=== PATIENT | female | born 1950 | race Caucasian/White ===

== ENCOUNTER 2016-03-31 17:05 | Emergency (ER) | payer MEDICARE ==
[2016-03-31] MEDS ORDERED: Diazepam 10 MG/2 ML SYRINGE ONE (17:37)
--- NOTE | 2016-03-31 18:53 | PICIS ---
[facility] EMERGENCY RECORD TRIAGE (SunMar 31, 2016 17:11 SDIS) TRIAGE NOTES: PT REPORTS DIZZINESS X 2 DAYS. PT DENIES CHEST PAIN. PT REPORTS INTERMITTENT SOB. PT REPORTS LOWER BACK PAIN RADIATING TO BILATERAL LEGS. DENIES ASSOCIATED N/V/D. REPORTS H/O RECENT R SIDED CP. (SunMar 31, 2016 17:11 SDIS) PATIENT: NAME: Mey Beavers, AGE: 66, GENDER: female, : e 1950, TIME OF GREET: SunMar 31, 2016 17:05, PREFERRED LANGUAGE: Slovenian, ETHNICITY: Not or , ECODE BILLING MAP: [facility], SSN: [id number], Zip Code: [address], KG WEIGHT: [phone] (est.), PHONE: , , , PERSON ID: [id number], PAYMENT: [facility] Medicare, PCP: DO GAN JOHN SCOTT. (SunMar 31, 2016 17:11 SDIS) COMPLAINT: MULTIPLE COMPLAINTS. (SunMar 31, 2016 17:11 SDIS) ADMISSION: URGENCY: 3 Urgent, ADMISSION SOURCE: Home, TRANSPORT: Walk-in, BED: TRIAGE. (SunMar 31, 2016 17:11 SDIS) SIRS SCORING: Heart Rate 55-109 (0), Temp range 96.8-101.1 (0), respiratory rate 12-24 (0), Mental Status altered: no (0). (17:31 SDIS) TRIAGE SCREENING: Patient denies suicidal ideation, Patient denies presence of domestic violence. (17:31 SDIS) LMP: LMP: Menopause. (17:31 SDIS) PROVIDERS: TRIAGE NURSE: Verna Landeros RN. (SunMar 31, 2016 17:11 SDIS) VITAL SIGNS: Resp 22, Pain 0, Time 03/31/2016 17:10. (17:10 SDIS) PREVIOUS VISIT ALLERGIES: No Known Drug Allergies. (SunMar 31, 2016 17:11 SDIS) No Known Drug Allergies. (17:31 SDIS) KNOWN ALLERGIES No Known Drug Allergies CURRENT MEDICATIONS omeprazole: CAPSULE,DELAYED RELEASE (ENTERIC COATED) : Strength - 40 mg : ORAL Patient Dose: 40 mg Oral once a day. (17:16 SDIS) meTOPROLOL succinate: TABLET, EXTENDED RELEASE 24 HR : Strength - 50 mg : ORAL Patient Dose: 50 mg Oral 2 times a day. (17:16 SDIS) metFORMIN: TABLET : Strength - 500 mg : ORAL Patient Dose: 500 mg Oral 2 times a day. (17:17 SDIS) FLUoxetine: CAPSULE : Strength - 20 mg : ORAL Patient Dose: 20 mg Oral 2 times a day. (17:17 SDIS) losartan: TABLET : Strength - 100 mg : ORAL Patient Dose: 100 mg Oral once a day. (17:18 SDIS) amLODIPine: TABLET : Strength - 10 mg : ORAL &a-1R&a+25V*p+0X*m8005R*c202B*c15G*c2P*p-0X&a-25V&a+1R Name: Mey Beavers : 1950 F66 MedRec: [id number] AcctNum: [id number] Prepared: SunApr 03, 2016 09:35 by Interface Page 1 of 8 pMD [facility] EMERGENCY RECORD Patient Dose: 10 mg Oral once a day. (17:18 SDIS) meloxicam: TABLET : Strength - 15 mg : ORAL Patient Dose: 15 mg Oral once a day. (17:18 SDIS) Advair Diskus: BLISTER, WITH INHALATION DEVICE : Strength - 250 mcg-50 mcg/Dose : INHALATION Patient Dose: 2 puff(s) Inhaler once a day. (17:19 SDIS) rOPINIRole: TABLET : Strength - 2 mg : ORAL Patient Dose: 2 mg Oral As Needed. (17:19 SDIS) ProAir HFA: HFA AEROSOL WITH ADAPTER (GRAM) : Strength - 90 mcg : INHALATION Patient Dose: 2 puff(s) Inhaler As Needed. (17:20 SDIS) furosemide: TABLET : Strength - 40 mg : ORAL Patient Dose: 40 mg Oral As Needed. (17:20 SDIS) LORazepam: TABLET : Strength - 0.5 mg : ORAL Patient Dose: 0.5 mg Oral As Needed. (17:20 SDIS) tiZANidine: CAPSULE : Strength - 4 mg : ORAL Patient Dose: 4 mg Oral every 8 hours PRN. (17:21 SDIS) benzonatate: CAPSULE : Strength - 100 mg : ORAL Patient Dose: 100 mg Oral every 8 hours PRN. (17:21 SDIS) VITAL SIGNS VITAL SIGNS: Resp: 22, Pain: 0, Time: 03/31/2016 17:10. (17:10 SDIS) BP: 142/62, Pulse: 59, Temp: 98.7 (Oral), O2 sat: 96 on Room Air, Time: 03/31/2016 17:16. (17:16 SDIS) BP: 160/52, Pulse: 64, Resp: 22, Temp: 97.9 (Oral), Pain: 0, O2 sat: 94 on Room Air, Time: 03/31/2016 18:38. (18:38 SDIS) NURSING ASSESSMENT: CVA ASSESSMENT TOOL (17:34 SDIS) NIHSS: CVA assessment findings: Level of consciousness: alert, keenly responsive (0), Questions: answers both questions correctly (0), Commands: performs both tasks correctly (0), Best gaze: normal (0), Visual: no visual loss (0), Facial palsy: normal symmetrical movement (0), Motor Left Arm: no drift, arm stays 90/45 degrees for full 10 seconds (0), Motor Right Arm: no drift, arm stays 90/45 degrees for full 10 seconds (0), Motor left leg: no drift, leg stays at 30 degrees for full five seconds (0), Motor right leg: no drift, leg stays at 30 degrees for full five seconds (0), Limb ataxia absent (0), Sensory: normal, no sensory loss (0), Best language: no aphasia; normal (0), Dysarthria: normal (0), Extinction and Inattention: normal (0), Total score 0. NOTES: Notes: NIH DONE BY DR. VAUGHN. &a-1R&a+25V*p+0X*[id number]*c202B*c15G*c2P*p-0X&a-25V&a+1R Name: Mey Beavers : 1950 F66 MedRec: [id number] AcctNum: [id number] Prepared: SunApr 03, 2016 09:35 by Interface Page 2 of 8 pMD [facility] EMERGENCY RECORD NURSING ASSESSMENT: NEURO (17:32 SDIS) GCS: (6) Obeying command:, (5) Orientated:, (4) Spontaneous eye opening. CONSTITUTIONAL: Patient arrives, via hospital wheelchair, Gait steady, History obtained from patient, Patient appears comfortable, Patient cooperative, Patient alert, Oriented to person, place and time, Skin warm, Skin dry, Skin normal in color, Mucous membranes pink, Mucous membranes moist, Patient complains of dizziness, SEE TRIAGE NOTE BY THIS RN. PT REPORTS ONSET 2-3 DAYS AGO. DENIES ASSOCIATED N/V. FEELS DIZZIER WITH POSITION CHANGE. DENIES SOB, DENIES PAIN. PAIN: Patient rates pain as 0 out of 10. NEURO: Pupils equally round and reactive to light, Able to close eyes, Face asymmetrical, Associated with dizziness described as, no associated nausea, no associated syncopal episode, no associated vomiting. NURSING ASSESSMENT: SKIN (17:28 SDIS) SKIN: Skin assessment findings include skin warm, Skin dry, Skin normal in color, Notes: BLANCHEABLE REDNESS TO BILATERAL BUTTOCKS. NURSING PROCEDURE: DISCHARGE NOTE (18:39 SDIS) DISCHARGE: Patient discharged to home, ambulating without assistance, family driving, accompanied by other family member, Summary of Care printed/ provided, Transition record given to patient, Discharge instructions given to patient, Simple or moderate discharge teaching performed, Prescriptions given and instructions on side effects given, Above person(s) verbalized understanding of discharge instructions and follow-up care, Patient instructed not to drive home, Patient treated and evaluated by physician, Notes: PT INSTRUCTED NOT TO DRIVE ON PAIN MEDICATIONS. PT VERBALIZES UNDERSTANDING. BELONGINGS: Belongings and valuables with patient at time of discharge include:, Belongings remain with patient, Valuables remain with patient. NURSING PROCEDURE: EKG CHART (17:11 SDIS) PATIENT IDENTIFIER: Patient actively involved in identification process, Patient's identity verified by patient stating name, Patient's identity verified by patient stating date, Patient's identity verified by hospital ID bracelet. EKG: EKG indicated for DIZZINESS, 12 lead EKG performed on the left chest, done by ANNIE CHAIREZ, first EKG. FOLLOW-UP: After procedure, EKG for interpretation given to Dr. VAUGHN. NURSING PROCEDURE: IV IV SITE 1: IV established, to the left antecubital, using a 20 gauge catheter, in one attempt, IV site prepped with CHLOROPREP, &a-1R&a+25V*p+0X*k6319B*c202B*c15G*c2P*p-0X&a-25V&a+1R Name: Mey Beavers : 1950 F66 MedRec: [id number] AcctNum: [id number] Prepared: SunApr 03, 2016 09:35 by Interface Page 3 of 8 pMD [facility] EMERGENCY RECORD Saline lock established, Labs drawn at time of placement, labeled in the presence of the patient and sent to lab, Notes: BY ANNIE NUNEZ. (17:24 SDIS) FOLLOW-UP SITE 1: After procedure, no drainage at IV site, After procedure, no swelling at IV site, After procedure, no redness at IV site, IV discontinued, due to patient being discharged, catheter intact, Notes: gauze and coban applied to hold pressure. (18:38 SDIS) SAFETY: Side rails up, Cart/Stretcher in lowest position, Call light within reach, Hospital ID band on. (17:24 SDIS) NURSING PROCEDURE: URINE COLLECTION (17:25 SDIS) URINE COLLECTION FEMALE: Urine collected by mid-stream clean catch, urine yellow in color, and clear, Notes: URINE KIT USED. MEDICATION ADMINISTRATION SUMMARY Drug Name: Valium injection, Dose Ordered: 5 mg, Route: IV Push, Status: Given, Time: 17:40 03/31/2016, Detailed record available in Medication Service section. MEDICATION SERVICE (17:40 MBRI) Valium injection: Order: Valium injection (diazepam) - Dose: 5 mg : IV Push POTENTIAL SEVERE INTERACTION: FLUoxetine - Benefits outweigh risks Schedule: Now Ordered by: Ancelmo Vaughn DO Entered by: Ancelmo Vaughn DO SunMar 31, 2016 17:38 Documented as given by: Verna Landeros RN SunMar 31, 2016 17:40 Patient, Medication, Dose, Route and Time verified prior to administration. IV SITE #1 IVP, initial medication, Slowly, Awake and alert- acceptable, Catheter placement confirmed via flush prior to administration, IV site without signs or symptoms of infiltration during medication administration, No swelling during administration, No drainage during administration, IV flushed after administration, Correct patient, time, route, dose and medication confirmed prior to administration, Patient advised of actions and side-effects prior to administration, Allergies confirmed and medications reviewed prior to administration. HPI WEAK-DIZZY (17:38 MBRI) CHIEF COMPLAINT: Patient presents for evaluation of dizziness. HISTORIAN: History provided by patient. LOCATION: Unable to localize symptoms. QUALITY: Symptoms described as, feeling unsteady, feelings of movement, patient spinning, while standing up, while lying down, while ambulating, Patient is alert and oriented &a-1R&a+25V*p+0X*p1558B*c202B*c15G*c2P*p-0X&a-25V&a+1R Name: Mey Beavers : 1950 F66 MedRec: [id number] AcctNum: [id number] Prepared: SunApr 03, 2016 09:35 by Interface Page 4 of 8 pMD [facility] EMERGENCY RECORD to person, place and time, Joon coma score is 15. SEVERITY: Maximum severity of symptoms moderate, Currently symptoms are moderate. TIME COURSE: Gradual onset of symptoms, There has been no change in the patient's symptoms over time, are intermittent. ASSOCIATED WITH: No associated ataxia, No associated chest pain, No associated chills, No associated ear pain, No associated fever, No associated gait disturbance, No associated headache, No associated nausea, No associated palpitations, No associated vomiting, No associated visual changes, Associated with upper respiratory infection. EXACERBATED BY: Patient's condition exacerbated by position, Patient's condition exacerbated by movement. RELIEVED BY: Patient's condition relieved by nothing because patient has not tried anything for relief. ROS (17:38 MBRI) CONSTITUTIONAL: Negative constitutional review of systems, Historian denies chills, denies fever. EYES: Historian denies eye pain, denies eye redness, denies eye discharge, reports nystagmus, denies photophobia, denies vision changes. Patient wears glasses. ENT: Historian denies rhinorrhea, denies sore throat. CARDIOVASCULAR: Historian denies chest pain, denies dyspnea on exertion. RESPIRATORY: Historian denies cough, denies shortness of breath. GI: Negative gastrointestinal review of systems, Historian denies abdominal pain, denies diarrhea, denies nausea, denies vomiting. GENITOURINARY FEMALE: Historian denies dysuria, denies frequency, denies hematuria. MUSCULOSKELETAL: Historian denies injury, Denies any musculoskeletal pain. SKIN: Negative skin review of systems, Historian denies skin changes. NEUROLOGIC: Historian denies dizziness, denies dysphasia, denies focal weakness, denies headache, denies mental status changes, denies paresthesias, denies sensory changes, denies speech changes, reports vertigo, denies focal weakness, Historian denies sensory changes. PAST MEDICAL HISTORY (17:31 SDIS) MEDICAL HISTORY: Notes: BACK PAIN, Past medical history includes history of diabetes, Past medical history includes gastrointestinal disease, gastroesophageal reflux disease, Past medical history includes history of hyperlipidemia, high cholesterol, Past medical history includes history of hypertension. COPD. FEMALE SURGICAL HISTORY: Surgical history of section, Notes: X2, Surgical history of orthopedic surgery, BILATERAL KNEES. HERNIA REPAIR. PSYCHIATRIC HISTORY: Psychiatric history includes, &a-1R&a+25V*p+0X*t6843J*c202B*c15G*c2P*p-0X&a-25V&a+1R Name: Mey Beavers : 1950 F66 MedRec: [id number] AcctNum: [id number] Prepared: SunApr 03, 2016 09:35 by Interface Page 5 of 8 pMD [facility] EMERGENCY RECORD anxiety. SOCIAL HISTORY: Patient denies alcohol use, Patient denies drug use, Patient currently uses tobacco, smokes cigarettes, daily, Patient smokes 1 pack per day. PHYSICAL EXAM (17:38 MBRI) CONSTITUTIONAL: Vital Signs Reviewed, Nursing notes reviewed. HEAD: Head exam included findings of head atraumatic, normocephalic. EYES: Eye exam included findings of eyelids normal to inspection, Pupils equally round and reactive to light, Extraocular muscles intact. ENT: Ear exam normal, external ear normal, tympanic membranes normal, Pharynx exam normal. NECK: Neck exam normal, no cervical adenopathy, no tenderness. RESPIRATORY CHEST: Respiratory exam included findings of no respiratory distress, Breath sounds clear, No wheezing, No rales, No rhonchi. CARDIOVASCULAR: Cardiovascular exam included findings of heart rate regular rate and rhythm, Heart sounds normal, Carotids normal. ABDOMEN FEMALE: Abdominal exam included findings of abdomen nontender, Bowel sounds normal, no peritoneal signs, no rigidity, no guarding, no rebound. BACK: Back exam included findings of normal inspection, no tenderness. UPPER EXTREMITY: Upper extremity exam included findings of inspection normal, Radial pulse normal, no cyanosis, no clubbing, no edema. LOWER EXTREMITY: Lower extremity exam included findings of inspection normal, femoral pulses normal, no cyanosis, no clubbing, no edema, no tenderness noted. NEURO: Neuro exam findings include patient oriented to person, place and time, Speech normal, Gait normal, Cranial nerves intact, Deep tendon reflexes normal, no focal motor deficits, no focal sensory deficits, no cerebellar deficits, no nystagmus, no clonus, NIHSS 0 and normal HINTS exam at this time. She does have a positive Hallpike eval with induction of symptoms, nystagmus horizontally, and fatiguability of symptoms c/w BPV. SKIN: Skin exam included findings of skin warm, dry, and normal in color. EVENTS TRANSFER: Triage to Emergency Triage. (SunMar 31, 2016 17:11 SDIS) Emergency Triage to Emergency Room -02. (17:16 SDIS) Removed from Emergency Emergency Room -02. (18:42 SDIS) EKG INTERPRETATION (17:18 MBRI) 12 LEAD EKG INTERPRETATION: 12 lead EKG interpreted by Emergency Department Physician at time of study, 12 lead EKG shows, &a-1R&a+25V*p+0X*k2442Y*c202B*c15G*c2P*p-0X&a-25V&a+1R Name: Mey Beavers : 1950 F66 MedRec: [id number] AcctNum: [id number] Prepared: SunApr 03, 2016 09:35 by Interface Page 6 of 8 pMD [facility] EMERGENCY RECORD sinus bradycardia, Rate (beats per minute): 57, with no ectopics, Conduction normal, ST segments normal, T waves normal, [place] normal, Other findings include:, age undetermined inf infarct. O2SAT INTERPRETATION (17:18 MBRI) O2SAT: Oxygen saturation interpretation: Normal. DOCTOR NOTES (18:27 MBRI) TEXT: Patient has been thoroughly evaluated. The patients symptoms are not consistent with CVA, new-onset TIA, or SAH at this time. Patient has a stable neurological exam and no present findings to suggest central cause of the symptoms. I will discharge home with follow-up and I have rec that she get back with her ENT phys for further care. Explanation and discussion of findings and plan for follow-up have been discussed with the patient and family and questions answered. The patient was instructed to return to the ED if a change in status occurs prior to PCP follow-up. PROBLEM LIST No recorded problems DIAGNOSIS (18:28 MBRI) FINAL: PRIMARY: BENIGN PAROXYSMAL VERTIGO BILATERAL, ADDITIONAL: Sciatica - Left. DISPOSITION PATIENT: Disposition Type: Discharge, Disposition: *Discharge Home, Condition: Improved. (18:28 MBRI) Patient left the department. (18:42 SDIS) INSTRUCTION (18:29 MBRI) DISCHARGE: BENIGN POSITIONAL VERTIGO, BACK PAIN W/ SCIATICA. FOLLOWUP: DO MALIK, DOUG SAINI, [facility], [address] [place] [address], , Follow up with Primary Care Physician in 7 days. SPECIAL: Please return for any further issues or concerns, we would be happy to see you. We hope you feel better soon. Follow-up with your PCP Tylenol or Advil for Pain. PRESCRIPTION Flexeril: TABLET : 10 mg : ORAL : Quantity: 1 Unit: tab(s) Route: ORAL Schedule: every 8 hours PRN Dispense: 30 May substitute. Refills: No Refills . (18:28 MBRI) NOTES: No refills. (18:28 MBRI) meclizine oral: CAPSULE : 25 mg : ORAL : Quantity: 1 Unit: tab(s) Route: ORAL Schedule: every 6 hours PRN Dispense: 20 Unit: tab(s) &a-1R&a+25V*p+0X*y7669H*c202B*c15G*c2P*p-0X&a-25V&a+1R Name: Mey Beavers : 1950 F66 MedRec: [id number] AcctNum: [id number] Prepared: SunApr 03, 2016 09:35 by Interface Page 7 of 8 pMD [facility] EMERGENCY RECORD May substitute. Refills: No Refills . (18:29 MBRI) NOTES: No refills. (18:29 MBRI) Valium oral: TABLET : 5 mg : ORAL : Quantity: 1 Unit: tab(s) Route: ORAL Schedule: every 8 hours PRN Dispense: 10 Unit: tab(s) May substitute. Refills: No Refills POTENTIAL SEVERE INTERACTION: FLUoxetine Override Rationale: Benefits outweigh risks. (18:29 MBRI) NOTES: ^s=No refills No refills. (18:29 MBRI) IMAGING *DISCHARGE INSTRUCTIONS RECEIPT: Image captured from scanner. (18:40 SDIS) *SUPPLY CHARGE SHEET: Image captured from scanner. (18:40 SDIS) *EKG: Image captured from scanner. (18:41 SDIS) ADMIN (SunApr 03, 2016 09:25 MBRI) DIGITAL SIGNATURE: DO Vaughn Matthew. Hubbard: MBRI=DO Vaughn Matthew SDIS=ANNIE Landeros, Verna &a-1R&a+25V*p+0X*t6434Q*c202B*c15G*c2P*p-0X&a-25V&a+1R Name: Mey Beavers : 1950 F66 MedRec: [id number] AcctNum: [id number] Prepared: SunApr 03, 2016 09:35 by Interface Page 8 of 8 pMD MTDD
== END 2016-03-31 18:39 | disposition home or self-care (01) ==
LOC: BURERS 17:05
DX: H81.13 Benign paroxysmal vertigo, bilateral (principal); M54.32 Sciatica, left side; E11.9 Type 2 diabetes mellitus without complications; K21.9 Gastro-esophageal reflux disease without esophagitis; E78.5 Hyperlipidemia, unspecified; I10 Essential (primary) hypertension; J44.9 Chronic obstructive pulmonary disease, unspecified; F41.9 Anxiety disorder, unspecified; F17.210 Nicotine dependence, cigarettes, uncomplicated; Z79.899 Other long term (current) drug therapy
CPT/HCPCS: 96374; J3360

== ENCOUNTER 2016-05-09 09:48 | Outpatient (CLI) | payer MEDICARE ==
--- NOTE | 2016-05-09 22:09 | RAD ---
CHEST TWO VIEWS 05/09/16 Comparison is made with the 12/09/15 study. The heart is borderline in size but unchanged. There is no vascular congestion or edema. No lobar in filtrate or effusion was seen. On the lateral view, there was a small amount of streaking posteriorl y behind the heart. I cannot absolutely exclude a minimal infiltrate, probably in the right lower lo be. The lungs are otherwise clear. The trachea is midline. IMPRESSION: 1. Borderline heart size, stable. 2. Retrocardiac streaking that raises the question of a minimal infiltrate in the right base. Code T POS: HOME
== END 2016-05-09 09:49 | disposition home or self-care (01) ==
LOC: BURRAD 09:48
PROVIDERS: ATTEND Physician Assistant
DX: J45.909 Unspecified asthma, uncomplicated (principal)
CPT/HCPCS: 71020

== ENCOUNTER 2016-05-24 09:52 | Outpatient (CLI) | payer MEDICARE ==
[2016-05-24 10:45] LABS: #Eosinphils 0.1 thou/uL (0.0-0.7); #Lymphocytes 1.8 thou/uL (1.20-3.40); #Monocytes 0.9 thou/uL (0.11-0.59); #Neutrophils 6.8 thou/uL (1.40-6.50); %Basophils 0.5 % (0.0-1.0); %Eosinophils 1.2 % (0.0-10.0); %Monocytes 9.1 % (0.0-10.0); Hematocrit 45.3 % (36.0-47.0); Mean Platelet Volume 6.8 fL (7.4-10.4); Red Blood Cell (RBC) Count 4.97 mill/uL (4.20-5.40); White Blood Cell (WBC) Count 9.6 thou/uL (4.8-10.8)
[2016-05-24 10:53] LABS: ALT (SGPT) 23 U/L (0-55); AST (SGOT) 20 U/L (5-34); Alkaline Phosphatase 62 U/L (40-150); Anion Gap 15 mmol/L (10-20); BUN (Urea Nitrogen) 14 mg/dL (9.8-20.1); Bilirubin, Total 0.6 mg/dL (0.2-1.2); Calc. Creatinine Clearance 0 mL/min (70-130); Calcium 9.4 mg/dL (7.8-10.44); Carbon Dioxide 26 mmol/L (23-31); Chloride 103 mmol/L (98-107); Estimated GFR-MDRD 68; Globulin 3.3 g/dL (2.4-3.5); LDL Cholesterol, Calculated 115 mg/dL; Protein, Total 7.2 g/dL (5.8-8.1)
[2016-05-24 10:55] LABS: Hemoglobin A1c 7.1 % (4.0-6.0)
== END 2016-05-24 09:53 | disposition home or self-care (01) ==
LOC: HPCALD 09:52
PROVIDERS: ATTEND Physician Assistant
DX: E11.9 Type 2 diabetes mellitus without complications (principal); I10 Essential (primary) hypertension
CPT/HCPCS: 36415; 80053; 80061; 83036; 84443; 85025

== ENCOUNTER 2016-05-24 10:07 | Outpatient (CLI) | payer MEDICARE ==
--- NOTE | 2016-05-24 22:39 | RAD ---
CHEST TWO VIEWS 05/24/16 Comparison is made with the 05/09/16 study. The heart is borderline in size but certainly no larger t perez before. There is no congestive change or pleural effusion. A calcified granuloma is seen in the right base. The left hilum is a little prominent but I believe that this is just all pulmonary arter y made a little more prominent by how the patient is being positioned. The trachea is midline. IMPRESSION: No definite acute findings. POS: HOME
== END 2016-05-24 10:08 | disposition home or self-care (01) ==
LOC: BURRAD 10:07
PROVIDERS: ATTEND Physician Assistant
DX: J44.9 Chronic obstructive pulmonary disease, unspecified (principal)
CPT/HCPCS: 36415; 71020; 80053; 80061; 83036; 84443; 85025

== ENCOUNTER 2016-06-01 08:40 | Outpatient (CLI) | payer MEDICARE | END 2016-06-01 08:41 | LOC: HPCALD 08:40 | PROVIDERS: ATTEND Physician Assistant | DX: R94.6 Abnormal results of thyroid function studies (principal) | CPT/HCPCS: 36415; 84443 ==

== ENCOUNTER 2016-08-14 11:19 | Outpatient (CLI) | payer MEDICARE ==
[2016-08-14 14:59] LABS: Anion Gap 19 mmol/L (10-20); BUN (Urea Nitrogen) 11 mg/dL (9.8-20.1); Calc. Creatinine Clearance 0 mL/min (70-130); Calcium 9.5 mg/dL (7.8-10.44); Carbon Dioxide 26 mmol/L (23-31); Chloride 100 mmol/L (98-107); Estimated GFR-MDRD 64; Glucose 103 mg/dL (80-115); Potassium 3.7 mmol/L (3.5-5.1); Sodium 141 mmol/L (136-145)
== END 2016-08-14 11:20 ==
LOC: HPCALD 11:19
PROVIDERS: ATTEND Physician Assistant
DX: E05.90 Thyrotoxicosis, unspecified without thyrotoxic crisis or storm (principal); R60.0 Localized edema
CPT/HCPCS: 36415; 80048; 84443

== ENCOUNTER 2017-04-24 15:01 | Outpatient (CLI) | payer MEDICARE ==
--- NOTE | 2017-04-24 21:16 | RAD ---
CHEST TWO VIEWS 04/24/17 Comparison is made with the 05/24/16 study. There is no significant interval change. The heart is upper normal in size but no different. There is no vascular congestion, edema, or pleural effusion. A calcified granuloma is seen in the right base as before. The mediastinum was unremarkable and the trachea is midline. IMPRESSION: No acute thoracic findings. POS: HOME
== END 2017-04-24 15:02 | disposition home or self-care (01) ==
LOC: BURRAD 15:01
PROVIDERS: ATTEND Physician Assistant
DX: J45.909 Unspecified asthma, uncomplicated (principal)
CPT/HCPCS: 71046

== ENCOUNTER 2017-05-09 17:25 | Emergency (ER) | payer MEDICARE ==
[2017-05-09 18:16] LABS: #Eosinphils 0.2 thou/uL (0.0-0.7); #Lymphocytes 2.7 thou/uL (1.20-3.40); #Monocytes 0.9 thou/uL (0.11-0.59); #Neutrophils 11.1 thou/uL (1.40-6.50); %Basophils 0.3 % (0.0-1.0); %Eosinophils 1.2 % (0.0-10.0); %Lymphocytes 18.2 % (21.0-51.0); %Monocytes 5.8 % (0.0-10.0); %Neutrophils 74.4 % (42.0-75.0); Mean Corpuscular Hemoglobin 32.5 pg (27.0-31.0); Mean Corpuscular Volume 90.3 fl (81.0-99.0); Mean Platelet Volume 8.9 fL (7.4-10.4); Platelet Count 236 thou/uL (130-400); RBC Distribution Width 13.3 % (11.5-14.5); White Blood Cell (WBC) Count 14.9 thou/uL (4.8-10.8)
[2017-05-09 18:33] LABS: Bilirubin Negative (Negative); Blood, Urine Negative (Negative); Clarity Clear (Clear); Glucose, Urine (Dipstick) Negative (Negative); Leukocyte Negative (Negative); Nitrite Negative (Negative); Protein, Urine (Dipstick) Negative (Neg-Trace); Specific Gravity, Urine 1.015 (1.005-1.030); Urobilinogen 0.2 mg/dL (0.2-1.0)
[2017-05-09 18:35] LABS: ALT (SGPT) 20 U/L (8-55); AST (SGOT) 22 U/L (5-34); Albumin 3.7 g/dL (3.4-4.8); Alkaline Phosphatase 48 U/L (40-150); Anion Gap 16 mmol/L (10-20); BUN (Urea Nitrogen) 11 mg/dL (9.8-20.1); Bilirubin, Total 0.4 mg/dL (0.2-1.2); Calc. Creatinine Clearance 0 mL/min (70-130); Calcium 8.7 mg/dL (7.8-10.44); Carbon Dioxide 31 mmol/L (23-31); Chloride 97 mmol/L (98-107); Estimated GFR-MDRD 69; Globulin 3.1 g/dL (2.4-3.5); Glucose 116 mg/dL (80-115); Protein, Total 6.8 g/dL (6.0-8.3); Sodium 141 mmol/L (136-145)
[2017-05-09 18:37] LABS: CKMB 1.3 ng/mL (0-6.6); Potassium 2.6 mmol/L (3.5-5.1); Troponin I 0.014 ng/mL (< 0.028)
[2017-05-09 18:42] LABS: PTT 25.8 SEC (22.9-36.1); Prothrombin Time 13.3 SEC (12.0-14.7)
[2017-05-09] MEDS ORDERED: Potassium Chloride 20 MEQ TAB ONE (18:56)
[2017-05-09] MEDS ORDERED: Potassium Chloride 20 MEQ/100 ML PREMIX BAG ONE (19:16)
== END 2017-05-09 20:06 | disposition short-term general hospital (02) ==
LOC: BURERS 17:25
DX: E87.6 Hypokalemia (principal); E11.9 Type 2 diabetes mellitus without complications; K21.9 Gastro-esophageal reflux disease without esophagitis; E78.5 Hyperlipidemia, unspecified; J44.9 Chronic obstructive pulmonary disease, unspecified; I10 Essential (primary) hypertension; F41.9 Anxiety disorder, unspecified; F17.210 Nicotine dependence, cigarettes, uncomplicated; Z79.899 Other long term (current) drug therapy; Z79.84 Long term (current) use of oral hypoglycemic drugs
CPT/HCPCS: 80053; 81003; 82553; 84443; 84484; 85025; 85610; 85730; 93005; 96365; J3480

== ENCOUNTER 2017-06-27 09:29 | Outpatient (CLI) | payer MEDICARE ==
--- NOTE | 2017-06-28 08:33 | ULT ---
THYROID ULTRASOUND: 06/27/17 Comparison is made with the prior study dated 06/02/16. Right lobe is approximately the same size as before and today was measured at 4.5 x 2.4 x 2.7 cm. Two complex, mostly solid, nodules are seen in this lobe. One is in the superior part of the lobe and me asures 0.8 x 1.1 x 0.8 cm. The other is in the middle third of the lobe and measures 1.8 x 2.4 x 1.2 cm. Allowing for differences in scanning, the overall appearance is approximately the same. The left lobe is a bit larger today when last year's scan. Today it measures 6.3 x 4.0 x 3.0 cm. Ther e are at least two complex mostly cystic masses in the mid to lower portion of this lobe. One measure s about 2.8 x 2.3 x 2.4 cm and the other is 2.9 x 1.9 x 2.6 cm. They are immediately adjacent to each other and is somewhat difficult to separate one from the other. The appearance is similar to before. IMPRESSION: 1. Thyroid enlargement with slight enlargement of the left lobe since last year. 2. Bilateral complex nodules, mostly solid in the right lobe and somewhat more cystic in the lef t lobe. While comparison is difficult to be precise, they roughly appear similar to the prior scan. POS: HOME
== END 2017-06-27 09:30 | disposition home or self-care (01) ==
LOC: BURULT 09:29
PROVIDERS: ATTEND Specialist
DX: E04.2 Nontoxic multinodular goiter (principal); E04.9 Nontoxic goiter, unspecified
CPT/HCPCS: 76536

== ENCOUNTER 2017-10-25 10:31 | Outpatient (CLI) | payer MEDICARE ==
--- NOTE | 2017-10-25 19:30 | RAD ---
PELVIS ONE VIEW: 10/25/17 The bony pelvis appears intact. No fracture or area of bony destruction was seen. The hip joints are symmetrical. The SI joints were unremarkable. IMPRESSION: No acute finding. POS: HOME
--- NOTE | 2017-10-25 19:34 | RAD ---
LUMBAR SPINE THREE VIEWS: 10/25/17 There is slight disc space narrowing at L2-L3 with anterior osteophytes here. There is minimal alvin listhesis of L4 on L5 that appears to be due to very prominent facet arthritis at this level. Small o steophytes are seen elsewhere. No fractures were evident. There is some calcification of the abdomina l aorta. IMPRESSION: 1. Moderately severe degenerative changes, particularly in the facet joints at L4-L5. 2. Mild disc space narrowing at L2-L3. POS: HOME
== END 2017-10-25 10:32 | disposition home or self-care (01) ==
LOC: BURRAD 10:31
PROVIDERS: ATTEND Family Medicine
DX: M51.16 Intervertebral disc disorders with radiculopathy, lumbar region (principal); M47.896 Other spondylosis, lumbar region
CPT/HCPCS: 72100; 72170

== ENCOUNTER 2018-03-21 07:10 | Emergency (ER) | payer MEDICARE ==
[2018-03-21] MEDS ORDERED: Morphine 4 MG/ML VIAL ONE ×2 (07:40→08:46)
[2018-03-21 07:58] LABS: #Basophils 0.1 thou/uL (0.0-0.2); #Eosinphils 0.2 thou/uL (0.0-0.7); #Lymphocytes 2.1 thou/uL (1.20-3.40); #Monocytes 0.8 thou/uL (0.11-0.59); #Neutrophils 7.6 thou/uL (1.40-6.50); %Basophils 0.8 % (0.0-1.0); %Eosinophils 1.9 % (0.0-10.0); %Lymphocytes 19.4 % (21.0-51.0); %Monocytes 7.1 % (0.0-10.0); %Neutrophils 70.8 % (42.0-75.0); Hemoglobin 13.2 g/dL (12.0-16.0); Mean Corpuscular HGB CONC 33.5 g/dL (32.0-36.0); Mean Corpuscular Volume 89.4 fL (78.0-98.0); Mean Platelet Volume 7.2 fL (7.4-10.4); Platelet Count 253 thou/uL (130-400); RBC Distribution Width 13.2 % (11.5-14.5); Red Blood Cell (RBC) Count 4.39 mill/uL (4.20-5.40); White Blood Cell (WBC) Count 10.7 thou/uL (4.8-10.8)
[2018-03-21 08:07] LABS: Bilirubin Small (Negative); Clarity Slightly Cloudy (Clear); Glucose, Urine (Dipstick) Negative (Negative); Leukocyte Negative (Negative); Nitrite Negative (Negative); Protein, Urine (Dipstick) Trace mg/dL (Neg-Trace); Specific Gravity, Urine 1.026 (1.005-1.030)
[2018-03-21 08:08] LABS: Blood, Urine Negative (Negative)
[2018-03-21 08:17] LABS: ALT (SGPT) 21 U/L (8-55); AST (SGOT) 23 U/L (5-34); Albumin 3.9 g/dL (3.4-4.8); Alkaline Phosphatase 53 U/L (40-150); Anion Gap 14 mmol/L (10-20); BUN (Urea Nitrogen) 14 mg/dL (9.8-20.1); Bilirubin, Total 0.4 mg/dL (0.2-1.2); Calc. Creatinine Clearance 0 mL/min (70-130); Calcium 9.4 mg/dL (7.8-10.44); Carbon Dioxide 27 mmol/L (23-31); Chloride 102 mmol/L (98-107); Estimated GFR-MDRD 70; Globulin 3.5 g/dL (2.4-3.5); Glucose 146 mg/dL (80-115); Potassium 4.1 mmol/L (3.5-5.1); Protein, Total 7.4 g/dL (6.0-8.3); Sodium 139 mmol/L (136-145)
== END 2018-03-21 09:21 | disposition home or self-care (01) ==
LOC: BURERS 07:10
DX: M54.5 Low back pain (principal); E11.9 Type 2 diabetes mellitus without complications; K21.9 Gastro-esophageal reflux disease without esophagitis; E78.5 Hyperlipidemia, unspecified; I10 Essential (primary) hypertension; E05.90 Thyrotoxicosis, unspecified without thyrotoxic crisis or storm; Z86.73 Personal history of transient ischemic attack (TIA), and cerebral infarction without residual deficits; F41.9 Anxiety disorder, unspecified; F17.210 Nicotine dependence, cigarettes, uncomplicated; Z79.899 Other long term (current) drug therapy; Z79.84 Long term (current) use of oral hypoglycemic drugs
CPT/HCPCS: 36415; 80053; 81003; 85025; 96374; 96376; J2270

== ENCOUNTER 2018-06-25 10:04 | Emergency (ER) | payer MEDICARE ==
[2018-06-25] MEDS ORDERED: HYDROcodone/Acetaminophen 5/325 mg Tablet ONE (10:26)
[2018-06-25] MEDS ORDERED: Cyclobenzaprine 10 MG TAB ONE (10:26)
== END 2018-06-25 11:06 | disposition home or self-care (01) ==
LOC: BURERS 10:04
DX: M54.5 Low back pain (principal); F41.9 Anxiety disorder, unspecified; E11.9 Type 2 diabetes mellitus without complications; K21.9 Gastro-esophageal reflux disease without esophagitis; E78.5 Hyperlipidemia, unspecified; J44.9 Chronic obstructive pulmonary disease, unspecified; I10 Essential (primary) hypertension; E05.90 Thyrotoxicosis, unspecified without thyrotoxic crisis or storm; F17.210 Nicotine dependence, cigarettes, uncomplicated; Z79.899 Other long term (current) drug therapy; Z86.73 Personal history of transient ischemic attack (TIA), and cerebral infarction without residual deficits; Z79.51 Long term (current) use of inhaled steroids; Z79.82 Long term (current) use of aspirin; Z79.891 Long term (current) use of opiate analgesic
CPT/HCPCS: 99283

== ENCOUNTER 2018-06-26 11:21 | Outpatient (CLI) | payer MEDICARE | END 2018-06-26 11:22 | disposition home or self-care (01) | LOC: BUREKG 11:21 | PROVIDERS: ATTEND Physician Assistant | DX: I49.9 Cardiac arrhythmia, unspecified (principal) | CPT/HCPCS: 93005; 93010 ==

== ENCOUNTER 2018-10-03 09:47 | Outpatient (CLI) | payer MEDICARE ==
--- NOTE | 2018-10-03 21:07 | ULT ---
THYROID ULTRASOUND 10/03/18 Comparison is made with prior study dated 06/27/17. A large thyroid gland and multiple nodules are seen today as on the prior study. The overall size of the gland has increased slightly and there is one additional nodule seen on the right. Details follow below: Right lobe measures 5.7 x 2.2 x 1.8 cm (maximum length 4.5 cm before). The 1.1 cm nodule seen in the superior pole of the right lobe is about the same in size and shape as before. Previously there was a 2.4 cm nodule in the mid portion and today that same nodule measures about 1.7 cm. A new nodule is s een in the inferior part of the right lobe and measures 1.1 cm in length. The left lobe remains large at 6.2 x 3.2 x 2.7 cm (comparable to prior measurement of 6.3 cm in lengt h). Once again seen are two nodules in the mid to lower portions of the left lobe. The more superior of the two measures 2.5 cm in length (2.8 cm before) and the slightly lower one measures 2.1 cm (2.9 cm before). No surrounding adenopathy was demonstrated. IMPRESSION: 1. Thyroid enlargement. Right lobe larger than before. Left lobe comparable to before. 2. Three nodules in the right lobe which are complex in nature. Two are the same or smaller in s ize than before. The one in the inferior pole is new compared to last time and measures 1.1 cm. 3. Left lobe enlarged but same size as before. Two nodules as before, both complex, both slightl y smaller than previously. POS: HOME
== END 2018-10-03 09:48 | disposition home or self-care (01) ==
LOC: BURULT 09:47
PROVIDERS: ATTEND Specialist
DX: E04.2 Nontoxic multinodular goiter (principal); E04.9 Nontoxic goiter, unspecified
CPT/HCPCS: 76536

== ENCOUNTER 2018-10-21 11:02 | Outpatient (CLI) | payer MEDICARE | END 2018-10-21 11:03 | disposition home or self-care (01) | LOC: BUREKG 11:02 | PROVIDERS: ATTEND Physician Assistant | DX: R07.89 Other chest pain (principal) | CPT/HCPCS: 71045; 71275; 80053; 83690; 83880; 84484; 85025; 85379; 93005; 93010; 94760; Q0162; Q9967 ==

== ENCOUNTER 2018-10-21 18:57 | Emergency (ER) | payer MEDICARE ==
[~2018-10-21 18:57] MED LIST: Iopamidol 370 76% 125 ML VIAL FS ONE
[2018-10-21 19:40] LABS: #Basophils 0.1 thou/uL (0.0-0.2); #Eosinphils 0.2 thou/uL (0.0-0.7); #Lymphocytes 1.8 thou/uL (1.20-3.40); #Monocytes 0.8 thou/uL (0.11-0.59); %Basophils 0.7 % (0.0-1.0); %Eosinophils 1.9 % (0.0-10.0); %Lymphocytes 20.5 % (21.0-51.0); %Monocytes 8.7 % (0.0-10.0); %Neutrophils 68.2 % (42.0-75.0); Hemoglobin 11.6 g/dL (12.0-16.0); Mean Corpuscular HGB CONC 31.6 g/dL (32.0-36.0); Mean Corpuscular Hemoglobin 27.7 pg (27.0-31.0); Mean Corpuscular Volume 87.8 fL (78.0-98.0); Mean Platelet Volume 6.3 fL (7.4-10.4); Platelet Count 282 thou/uL (130-400); RBC Distribution Width 13.5 % (11.5-14.5); White Blood Cell (WBC) Count 8.9 thou/uL (4.8-10.8)
[2018-10-21] MEDS ORDERED: Ondansetron ODT 4 MG TAB ONE (19:47)
[2018-10-21] MEDS ORDERED: Aspirin Chewable 81 MG TAB ONE (19:47)
[2018-10-21 19:55] LABS: ALT (SGPT) 80 U/L (8-55); AST (SGOT) 65 U/L (5-34); Albumin 3.7 g/dL (3.4-4.8); Alkaline Phosphatase 53 U/L (40-150); Anion Gap 15 mmol/L (10-20); BUN (Urea Nitrogen) 8 mg/dL (9.8-20.1); Bilirubin, Total 0.3 mg/dL (0.2-1.2); Calc. Creatinine Clearance 0 mL/min (70-130); Calcium 9.5 mg/dL (7.8-10.44); Carbon Dioxide 32 mmol/L (23-31); Chloride 97 mmol/L (98-107); Estimated GFR-MDRD 73; Globulin 3.6 g/dL (2.4-3.5); Glucose 163 mg/dL (80-115); Potassium 3.4 mmol/L (3.5-5.1); Protein, Total 7.3 g/dL (6.0-8.3); Sodium 141 mmol/L (136-145)
--- NOTE | 2018-10-21 21:23 | RAD ---
PORTABLE CHEST: Date: 10-21-18 An AP portable film at 1918 is compared with multiple prior studies. FINDINGS: The heart size is stable. The upper lobe vesicles are questionably more prominent than they have been in the past, but the finding is borderline. There is no overt pulmonary edema or pleural effusion. N o focal pulmonary infiltrate was seen. A calcified granuloma is seen in the right lower chest, presen t on numerous prior studies. IMPRESSION: Question of slight prominence of upper lobe vessels, exam otherwise unchanged. POS: HOME
--- NOTE | 2018-10-21 21:43 | CT ---
CT ANGIOGRAM OF THE CHEST WITH CONTRAST: Date: 10-21-18 Technique: Spiral CT of the chest was performed and compared with a 09-23-17 CT. Axial slices were acqu ired followed by various reformations through the pulmonary arteries. FINDINGS: The pulmonary arteries are moderately well opacified. There was no evidence of large pulmonary emboli , though small to medium sized ones would be missed by this study. There is no sign of aortic dissect ion or aneurysm. The heart is slightly generous in size but no pericardial effusion was seen. Depende nt atelectasis is present in the lungs. No acute lobar infiltrate or effusion was seen. There is no s ign of pulmonary nodules. Scans into the upper abdomen show a small hiatal hernia. There is a peripherally enhancing mass in th e right lobe of the liver but today measured 4.5 x 3.1 cm. Previously it was measured 4.5 x 2.8 cm. T he peripheral enhancement makes it likely that this is a hemangioma. Dedicated liver MRI could help f urther assure this, though the overall change in time has been only slight. No adrenal masses were se en though the left adrenal gland is slightly bulbous in appearance. It is not really different than b efore. An incidental finding on the study is enlargement of the thyroid gland, particularly left lobe, with multiple thyroid nodules. This is known and there has been a recent ultrasound of it. IMPRESSION: 1. Moderate sensitivity study showing no evidence of pulmonary embolism. 2. No acute cardiopulmonary process. 3. Rim enhancing mass in the right lobe of the liver. The enhancement pattern is most consistent with a hemangioma. The size seems only marginally larger than the [address] CT. 4. Thyroid enlargement and nodules, not a new finding in this patient. 5. Hiatal hernia. POS: HOME
== END 2018-10-21 20:59 | disposition home or self-care (01) ==
LOC: BURERS 18:57
DX: R07.89 Other chest pain (principal); R05 Cough; E11.9 Type 2 diabetes mellitus without complications; K21.9 Gastro-esophageal reflux disease without esophagitis; E78.5 Hyperlipidemia, unspecified; I10 Essential (primary) hypertension; F41.9 Anxiety disorder, unspecified; J44.9 Chronic obstructive pulmonary disease, unspecified; E05.90 Thyrotoxicosis, unspecified without thyrotoxic crisis or storm; F17.210 Nicotine dependence, cigarettes, uncomplicated; Z86.73 Personal history of transient ischemic attack (TIA), and cerebral infarction without residual deficits; Z79.84 Long term (current) use of oral hypoglycemic drugs; Z79.82 Long term (current) use of aspirin; Z79.899 Other long term (current) drug therapy
CPT/HCPCS: 71045; 71275; 80053; 83690; 83880; 84484; 85025; 85379; 93005; 94760; Q0162

== ENCOUNTER 2019-01-11 13:32 | Emergency (ER) | payer MEDICARE ==
[2019-01-11 13:57] LABS: #Basophils 0.1 thou/uL (0.0-0.2); #Eosinphils 0.2 thou/uL (0.0-0.7); #Lymphocytes 2.3 thou/uL (1.20-3.40); #Monocytes 0.9 thou/uL (0.11-0.59); #Neutrophils 6.8 thou/uL (1.40-6.50); %Basophils 0.9 % (0.0-1.0); %Eosinophils 1.8 % (0.0-10.0); %Lymphocytes 22.7 % (21.0-51.0); %Monocytes 8.5 % (0.0-10.0); %Neutrophils 66.1 % (42.0-75.0); Hemoglobin 12.5 g/dL (12.0-16.0); Mean Corpuscular HGB CONC 30.7 g/dL (32.0-36.0); Mean Corpuscular Hemoglobin 26.9 pg (27.0-31.0); Mean Corpuscular Volume 87.7 fL (78.0-98.0); Mean Platelet Volume 7.4 fL (7.4-10.4); Platelet Count 237 thou/uL (130-400); RBC Distribution Width 14.5 % (11.5-14.5); Red Blood Cell (RBC) Count 4.67 mill/uL (4.20-5.40); White Blood Cell (WBC) Count 10.3 thou/uL (4.8-10.8)
[2019-01-11] MEDS ORDERED: Aspirin Chewable 81 MG TAB ONE (14:03)
[2019-01-11 14:15] LABS: ALT (SGPT) 52 U/L (8-55); AST (SGOT) 45 U/L (5-34); Albumin 3.9 g/dL (3.4-4.8); Alkaline Phosphatase 61 U/L (40-110); Anion Gap 16 mmol/L (10-20); BUN (Urea Nitrogen) 15 mg/dL (9.8-20.1); Bilirubin, Total 0.4 mg/dL (0.2-1.2); Calc. Creatinine Clearance 0 mL/min (70-130); Calcium 9.8 mg/dL (7.8-10.44); Carbon Dioxide 25 mmol/L (23-31); Chloride 101 mmol/L (98-107); Estimated GFR-MDRD 66; Glucose 119 mg/dL (80-115); Lipase 30 U/L (8-78); Potassium 3.7 mmol/L (3.5-5.1); Protein, Total 7.9 g/dL (6.0-8.3); Sodium 138 mmol/L (136-145)
[2019-01-11 14:57] LABS: Bilirubin Negative (Negative); Blood, Urine Negative (Negative); Clarity Clear (Clear); Glucose, Urine (Dipstick) Negative (Negative); Leukocyte Negative (Negative); Nitrite Negative (Negative); Protein, Urine (Dipstick) Negative (Neg-Trace); Urobilinogen 0.2 mg/dL (Less than 2)
--- NOTE | 2019-01-11 16:43 | RAD ---
PORTABLE CHEST 01/11/19 An AP portable film at 1353 is compared with a 11/20/18 study. Mild cardiomegaly is about the same. The upper lobe vessels are mildly prominent in size, but there is no pulmonary edema or obvious pleural fluid. The lungs are clear. The mediastinum was unremarkable. IMPRESSION: Mild cardiomegaly with equivocal congestion of the upper lobe vessels. POS: HOME
== END 2019-01-11 17:19 | disposition home or self-care (01) ==
LOC: BURERS 13:32
DX: R07.9 Chest pain, unspecified (principal); F41.9 Anxiety disorder, unspecified; E11.9 Type 2 diabetes mellitus without complications; E05.90 Thyrotoxicosis, unspecified without thyrotoxic crisis or storm; K21.9 Gastro-esophageal reflux disease without esophagitis; E78.5 Hyperlipidemia, unspecified; E78.00 Pure hypercholesterolemia, unspecified; I10 Essential (primary) hypertension; Z86.73 Personal history of transient ischemic attack (TIA), and cerebral infarction without residual deficits; F32.9 Major depressive disorder, single episode, unspecified; F17.210 Nicotine dependence, cigarettes, uncomplicated; Z79.899 Other long term (current) drug therapy; Z79.84 Long term (current) use of oral hypoglycemic drugs; Z79.51 Long term (current) use of inhaled steroids; Z79.82 Long term (current) use of aspirin
CPT/HCPCS: 36415; 71045; 80053; 81003; 83690; 84484; 85025; 93005

== ENCOUNTER 2019-01-14 09:45 | Outpatient (CLI) | payer MEDICARE ==
--- NOTE | 2019-01-14 16:49 | RAD ---
RIGHT FOOT THREE VIEWS: 01/14/19 No acute fracture or periosteal reaction was seen. There is a very vague naomy of bone or calcificati on on the lateral aspect of the third MTP joint. This is suggestive of old trauma at this location. I doubt that it is recent. Facet otherwise appears intact. IMPRESSION: No acute findings. See above. POS: HOME
== END 2019-01-14 09:46 | disposition home or self-care (01) ==
LOC: BURRAD 09:45
PROVIDERS: ATTEND Physician Assistant
DX: M79.671 Pain in right foot (principal)

== ENCOUNTER 2019-02-20 14:53 | Outpatient (CLI) | payer MEDICARE ==
--- NOTE | 2019-02-20 18:03 | RAD ---
RIGHT FOOT THREE VIEWS: 02/20/19 No fracture or periosteal reaction was appreciated. The bony structures currently appear normal. IMPRESSION: No acute bony finding. POS: HOME
== END 2019-02-20 14:54 | disposition home or self-care (01) ==
LOC: BURRAD 14:53
PROVIDERS: ATTEND Podiatrist Foot & Ankle Surgery
DX: M79.671 Pain in right foot (principal)

== ENCOUNTER 2019-03-12 17:54 | Emergency (ER) | payer MEDICARE ==
[2019-03-12] MEDS ORDERED: methylPREDNISolone Sod Succ/PF 125 MG/2 ML VIAL ONE ×2 (18:58→19:00)
[2019-03-12 19:08] LABS: #Basophils 0.1 thou/uL (0.0-0.2); #Eosinphils 0.2 thou/uL (0.0-0.7); #Lymphocytes 2.2 thou/uL (1.20-3.40); %Basophils 0.8 % (0.0-1.0); %Eosinophils 2.3 % (0.0-10.0); %Lymphocytes 20.8 % (21.0-51.0); %Monocytes 9.3 % (0.0-10.0); %Neutrophils 66.8 % (42.0-75.0); Hemoglobin 11.2 g/dL (12.0-16.0); Mean Corpuscular HGB CONC 31.3 g/dL (32.0-36.0); Mean Corpuscular Hemoglobin 28.1 pg (27.0-31.0); Mean Corpuscular Volume 89.8 fL (78.0-98.0); Mean Platelet Volume 7.5 fL (7.4-10.4); Platelet Count 237 thou/uL (130-400); RBC Distribution Width 14.2 % (11.5-14.5); White Blood Cell (WBC) Count 10.4 thou/uL (4.8-10.8)
[2019-03-12 19:22] LABS: ALT (SGPT) 33 U/L (8-55); AST (SGOT) 36 U/L (5-34); Albumin 3.7 g/dL (3.4-4.8); Alkaline Phosphatase 50 U/L (40-110); Anion Gap 16 mmol/L (10-20); BUN (Urea Nitrogen) 12 mg/dL (9.8-20.1); Bilirubin, Total 0.4 mg/dL (0.2-1.2); Calc. Creatinine Clearance 0 mL/min (70-130); Calcium 9.3 mg/dL (7.8-10.44); Carbon Dioxide 30 mmol/L (23-31); Chloride 99 mmol/L (98-107); Estimated GFR-MDRD 60; Globulin 3.6 g/dL (2.4-3.5); Glucose 171 mg/dL (80-115); Potassium 3.1 mmol/L (3.5-5.1); Protein, Total 7.3 g/dL (6.0-8.3); Sodium 142 mmol/L (136-145)
[2019-03-12] MEDS ORDERED: Albuterol Sulfate 1.25 MG/3 ML NEB ONE (19:32)
== END 2019-03-12 20:25 | disposition home or self-care (01) ==
LOC: BURERS 17:54
DX: J44.1 Chronic obstructive pulmonary disease with (acute) exacerbation (principal); I10 Essential (primary) hypertension; E11.9 Type 2 diabetes mellitus without complications; E05.90 Thyrotoxicosis, unspecified without thyrotoxic crisis or storm; K21.9 Gastro-esophageal reflux disease without esophagitis; E78.5 Hyperlipidemia, unspecified; E78.00 Pure hypercholesterolemia, unspecified; F41.9 Anxiety disorder, unspecified; F32.9 Major depressive disorder, single episode, unspecified; F17.210 Nicotine dependence, cigarettes, uncomplicated; Z79.82 Long term (current) use of aspirin; Z79.899 Other long term (current) drug therapy; Z86.73 Personal history of transient ischemic attack (TIA), and cerebral infarction without residual deficits; Z79.84 Long term (current) use of oral hypoglycemic drugs; Z79.51 Long term (current) use of inhaled steroids
CPT/HCPCS: 36415; 80053; 85025; 94640; 96372; J2930; J7620

== ENCOUNTER 2019-05-19 09:02 | Emergency (ER) | payer MEDICARE ==
[2019-05-19] MEDS ORDERED: predniSONE 20 MG TAB ONE (09:26)
[2019-05-19 09:40] LABS: #Basophils 0.1 thou/uL (0.0-0.2); #Eosinphils 0.2 thou/uL (0.0-0.7); #Lymphocytes 1.8 thou/uL (1.20-3.40); #Monocytes 0.7 thou/uL (0.11-0.59); #Neutrophils 6.9 thou/uL (1.40-6.50); %Basophils 0.7 % (0.0-1.0); %Eosinophils 2.1 % (0.0-10.0); %Lymphocytes 18.6 % (21.0-51.0); %Monocytes 7.6 % (0.0-10.0); Hemoglobin 12.2 g/dL (12.0-16.0); Mean Corpuscular HGB CONC 31.2 g/dL (32.0-36.0); Mean Corpuscular Volume 86.5 fL (78.0-98.0); Mean Platelet Volume 7.6 fL (7.4-10.4); Platelet Count 232 thou/uL (130-400); RBC Distribution Width 14.1 % (11.5-14.5); Red Blood Cell (RBC) Count 4.51 mill/uL (4.20-5.40); White Blood Cell (WBC) Count 9.7 thou/uL (4.8-10.8)
[2019-05-19 09:58] LABS: ALT (SGPT) 33 U/L (8-55); AST (SGOT) 34 U/L (5-34); Albumin 3.8 g/dL (3.4-4.8); Alkaline Phosphatase 60 U/L (40-110); Anion Gap 11 mmol/L (10-20); BUN (Urea Nitrogen) 13 mg/dL (9.8-20.1); Bilirubin, Total 0.4 mg/dL (0.2-1.2); CK (CPK) 60 U/L (29-168); Calc. Creatinine Clearance 0 mL/min (70-130); Calcium 9.4 mg/dL (7.8-10.44); Carbon Dioxide 31 mmol/L (23-31); Chloride 101 mmol/L (98-107); Estimated GFR-MDRD 71; Globulin 3.7 g/dL (2.4-3.5); Glucose 138 mg/dL (83-110); Potassium 4.3 mmol/L (3.5-5.1); Protein, Total 7.5 g/dL (6.0-8.3); Sodium 139 mmol/L (136-145)
--- NOTE | 2019-05-19 17:32 | RAD ---
CHEST TWO VIEWS: Date: 05-19-2019 Comparison: 01-11-19 portable study FINDINGS: The heart is mildly enlarged. While the vessels are slightly prominent, it is not so much as to confi dently call any sign of congestive failure. No lobar infiltrate to suggest pneumonia was seen. There are no effusions. IMPRESSION: Mild cardiomegaly. No current sign of pneumonia. POS: HOME
== END 2019-05-19 10:52 | disposition home or self-care (01) ==
LOC: BURERS 09:02
DX: J44.1 Chronic obstructive pulmonary disease with (acute) exacerbation (principal); J01.80 Other acute sinusitis; B96.89 Other specified bacterial agents as the cause of diseases classified elsewhere; E11.9 Type 2 diabetes mellitus without complications; E05.90 Thyrotoxicosis, unspecified without thyrotoxic crisis or storm; E78.5 Hyperlipidemia, unspecified; E78.00 Pure hypercholesterolemia, unspecified; I10 Essential (primary) hypertension; K21.9 Gastro-esophageal reflux disease without esophagitis; F41.9 Anxiety disorder, unspecified; F32.9 Major depressive disorder, single episode, unspecified; Z86.73 Personal history of transient ischemic attack (TIA), and cerebral infarction without residual deficits; Z79.899 Other long term (current) drug therapy; Z79.82 Long term (current) use of aspirin; Z79.51 Long term (current) use of inhaled steroids; Z79.84 Long term (current) use of oral hypoglycemic drugs
CPT/HCPCS: 36415; 71046; 80053; 82550; 84484; 85025; 93005; J7512

== ENCOUNTER 2020-01-01 10:31 | Emergency (ER) | payer MEDICARE ==
[2020-01-01 11:08] LABS: #Basophils 0.1 thou/uL (0.0-0.2); #Eosinphils 0.2 thou/uL (0.0-0.7); #Lymphocytes 2.3 thou/uL (1.20-3.40); #Monocytes 0.7 thou/uL (0.11-0.59); #Neutrophils 9.6 thou/uL (1.40-6.50); %Basophils 0.4 % (0.0-1.0); %Eosinophils 1.6 % (0.0-10.0); %Monocytes 5.4 % (0.0-10.0); %Neutrophils 74.6 % (42.0-75.0); Hemoglobin 13.5 g/dL (12.0-16.0); Mean Corpuscular HGB CONC 30.5 g/dL (32.0-36.0); Mean Corpuscular Hemoglobin 26.8 pg (27.0-31.0); Mean Corpuscular Volume 88.1 fL (78.0-98.0); Mean Platelet Volume 7.8 fL (7.4-10.4); Platelet Count 282 thou/uL (130-400); RBC Distribution Width 14.3 % (11.5-14.5); Red Blood Cell (RBC) Count 5.02 mill/uL (4.20-5.40); White Blood Cell (WBC) Count 12.8 thou/uL (4.8-10.8)
[2020-01-01 11:23] LABS: Bilirubin Negative (Negative); Blood, Urine Negative (Negative); Clarity Clear (Clear); Glucose, Urine (Dipstick) Negative (Negative); Ketone, Urine Negative (Negative); Leukocyte Negative (Negative); Nitrite Negative (Negative); Protein, Urine (Dipstick) Trace mg/dL (Neg-Trace); Specific Gravity, Urine 1.015 (1.005-1.030); Urobilinogen 0.2 mg/dL (Less than 2)
[2020-01-01 11:25] LABS: Acetaminophen Less than 6.0 mcg/mL (10.0-30.0); Alcohol Less than 10 mg/dL (Less than 10); Salicylate Less than 8.0 mg/dL (15.0-30.0)
[2020-01-01 11:27] LABS: ALT (SGPT) 23 U/L (8-55); AST (SGOT) 28 U/L (5-34); Alkaline Phosphatase 76 U/L (40-110); Anion Gap 16 mmol/L (10-20); BUN (Urea Nitrogen) 13 mg/dL (9.8-20.1); Bilirubin, Total 0.5 mg/dL (0.2-1.2); Calc. Creatinine Clearance 0 mL/min (70-130); Calcium 9.6 mg/dL (7.8-10.44); Carbon Dioxide 26 mmol/L (23-31); Chloride 98 mmol/L (98-107); Estimated GFR-MDRD 67; Glucose 163 mg/dL (83-110); Potassium 3.9 mmol/L (3.5-5.1); Sodium 136 mmol/L (136-145)
[2020-01-01] MEDS ORDERED: hydrOXYzine 25 MG TAB ONE (11:34)
[2020-01-01 11:40] LABS: Benzodiazepine Screen Detected (NotDetected); Phencyclidine (PCP) Not Detected (NotDetected); THC/Cannabinoid Screen Not Detected (NotDetected)
[2020-01-01 11:41] LABS: Amphetamine Not Detected (NotDetected); Barbiturates Screen Not Detected (NotDetected); Cocaine Metabolite Screen Not Detected (NotDetected); Medtox Control Line Valid? VALID (VALID); Methadone Not Detected (NotDetected); Methamphetamine Not Detected (NotDetected); Opiate Screen Not Detected (NotDetected); Oxycodone Screen Not Detected (NotDetected); Tricyclic Screen Not Detected (NotDetected)
[2020-01-01] MEDS ORDERED: Acetaminophen 500 MG TAB ONE (16:23)
== END 2020-01-01 11:02 ==
LOC: BURERS 10:31
DX: F32.9 Major depressive disorder, single episode, unspecified (principal); E11.9 Type 2 diabetes mellitus without complications; I10 Essential (primary) hypertension; E66.9 Obesity, unspecified; J44.9 Chronic obstructive pulmonary disease, unspecified; E03.9 Hypothyroidism, unspecified; K21.9 Gastro-esophageal reflux disease without esophagitis; E78.00 Pure hypercholesterolemia, unspecified; E78.5 Hyperlipidemia, unspecified; F41.9 Anxiety disorder, unspecified; Z86.73 Personal history of transient ischemic attack (TIA), and cerebral infarction without residual deficits; Z87.891 Personal history of nicotine dependence; Z79.82 Long term (current) use of aspirin; Z79.899 Other long term (current) drug therapy; Z79.84 Long term (current) use of oral hypoglycemic drugs
CPT/HCPCS: 36415; 80053; 80306; 80307; 81003; 84443; 85025; 94760

== ENCOUNTER 2020-03-15 10:26 | Outpatient (CLI) | payer MEDICARE ==
--- NOTE | 2020-03-15 19:11 | RAD ---
CHEST TWO VIEWS: Date: 03-15-2020 Comparison: 05-19-2019 FINDINGS: Mild to moderate cardiomegaly is about the same as before. Vessels seem slightly more prominent than previously. There is no gross pulmonary edema or pleural effusion. No focal pulmonary infiltrate was seen. IMPRESSION: Cardiomegaly with possible very early congestive change. Correlate with clinical symptoms. POS: HOME
== END 2020-03-15 10:27 | disposition home or self-care (01) ==
LOC: BURRAD 10:26
PROVIDERS: ATTEND Registered Nurse Community Health
DX: R06.02 Shortness of breath (principal); I51.7 Cardiomegaly
CPT/HCPCS: 71046

== ENCOUNTER 2020-04-08 12:33 | Emergency (ER) | payer MEDICARE ==
[2020-04-08] MEDS ORDERED: Ketorolac Tromethamine 30 MG/ML VIAL ONE (13:41)
[2020-04-08] MEDS ORDERED: HYDROcodone/Acetaminophen 10/325 mg Tablet ONE (13:41)
--- NOTE | 2020-04-08 17:37 | CT ---
CT OF THE LUMBAR SPINE: 04/08/[address] of the lumbar spine was done for evaluation of back pain. The sensitivity of the study is s omewhat reduced due to body habitus. The study covers the mid T11 area through the top of the sacrum. No acute fracture was seen at any level. Degenerated discs are particularly prominent at L3-L4 and L 5-S1, and to a lesser extent at T12-L1. There has been a prior laminectomy at the L3 level. There is grade I anterolisthesis of L3 on L4 that is due in part due to facet arthritis. No fracture or bony d estructive lesion was seen. While there is no gross disc herniation, sensitivity of this study to marciano t would be rather low. At the L3-L4 level, there could be some lateral bulging of the disc, but it wo uld take an MRI to resolve this appropriately. IMPRESSION: Degenerative changes as noted. No fracture seen. Preliminary report called to Dr. Shields at 1401 on 04/08/20. POS: HOME
== END 2020-04-08 14:42 | disposition home or self-care (01) ==
LOC: BURERS 12:33
DX: M54.5 Low back pain (principal); G89.29 Other chronic pain; E11.9 Type 2 diabetes mellitus without complications; I10 Essential (primary) hypertension; E66.9 Obesity, unspecified; J44.9 Chronic obstructive pulmonary disease, unspecified; E03.9 Hypothyroidism, unspecified; K21.9 Gastro-esophageal reflux disease without esophagitis; E78.5 Hyperlipidemia, unspecified; E78.00 Pure hypercholesterolemia, unspecified; Z86.73 Personal history of transient ischemic attack (TIA), and cerebral infarction without residual deficits; Z79.51 Long term (current) use of inhaled steroids; Z79.899 Other long term (current) drug therapy
CPT/HCPCS: 72131; 96372; J1885

== ENCOUNTER 2020-11-12 11:38 | Outpatient (CLI) | payer MEDICARE | END 2020-11-12 11:39 | disposition home or self-care (01) | LOC: BURRAD 11:38 | PROVIDERS: ATTEND Physician Assistant | DX: R07.9 Chest pain, unspecified (principal); I51.7 Cardiomegaly; W19.XXXD Unspecified fall, subsequent encounter | CPT/HCPCS: 71046 ==

== ENCOUNTER 2020-11-12 12:16 | Emergency (ER) | payer MEDICARE | END 2020-11-12 12:51 | disposition home or self-care (01) | LOC: BURERS 12:16 | DX: S20.211A Contusion of right front wall of thorax, initial encounter (principal); S90.811A Abrasion, right foot, initial encounter; S50.311A Abrasion of right elbow, initial encounter; R06.89 Other abnormalities of breathing; E11.9 Type 2 diabetes mellitus without complications; I10 Essential (primary) hypertension; E03.9 Hypothyroidism, unspecified; X58.XXXA Exposure to other specified factors, initial encounter | CPT/HCPCS: 99283 ==

== ENCOUNTER 2021-02-18 15:40 | Emergency (ER) | payer MEDICARE ==
[2021-02-18 17:02] LABS: ALT (SGPT) 28 U/L (8-55); AST (SGOT) 36 U/L (5-34); Albumin 3.5 g/dL (3.4-4.8); Alkaline Phosphatase 69 U/L (40-110); Anion Gap 15 mmol/L (10-20); BUN (Urea Nitrogen) 15 mg/dL (9.8-20.1); Bilirubin, Total 0.4 mg/dL (0.2-1.2); Calc. Creatinine Clearance 0 mL/min (70-130); Calcium 9.9 mg/dL (7.8-10.44); Carbon Dioxide 26 mmol/L (23-31); Chloride 99 mmol/L (98-107); Glucose 181 mg/dL (83-110); Protein, Total 7.5 g/dL (5.8-8.1); Sodium 136 mmol/L (136-145)
[2021-02-18 17:03] LABS: #Basophils 0.1 thou/uL (0.0-0.2); #Eosinphils 0.2 thou/uL (0.0-0.7); #Lymphocytes 1.9 thou/uL (1.20-3.40); #Monocytes 0.9 thou/uL (0.11-0.59); %Basophils 0.5 % (0.0-1.0); %Eosinophils 1.9 % (0.0-10.0); %Lymphocytes 16.9 % (21.0-51.0); %Monocytes 7.9 % (0.0-10.0); %Neutrophils 72.8 % (42.0-75.0); Hemoglobin 12.8 g/dL (12.0-16.0); Mean Corpuscular HGB CONC 31.6 g/dL (32.0-36.0); Mean Corpuscular Hemoglobin 27.7 pg (27.0-31.0); Mean Corpuscular Volume 87.6 fL (78.0-98.0); Mean Platelet Volume 8.7 fL (7.4-10.4); Platelet Count 257 thou/uL (130-400); RBC Distribution Width 14.4 % (11.5-14.5); Red Blood Cell (RBC) Count 4.62 mill/uL (4.20-5.40)
[2021-02-18 18:09] LABS: Bilirubin Small (Negative); Blood, Urine Negative (Negative); Clarity Cloudy (Clear); Glucose, Urine (Dipstick) Negative (Negative); Ketone, Urine 15 mg/dL (Negative); Leukocyte Negative (Negative); Nitrite Negative (Negative); Protein, Urine (Dipstick) 30 mg/dL (Neg-Trace)
[2021-02-18 18:10] LABS: Specific Gravity, Urine 1.026 (1.002-1.036)
[2021-02-18 18:13] LABS: RBC/HPF 0-3 HPF (0-3); WBC/HPF 0-3 HPF (0-3)
[2021-02-18 18:14] LABS: Bacteria/HPF 3+ HPF (None Seen); Mucous/LPF 4+ LPF (<2+)
== END 2021-02-18 18:38 | disposition home or self-care (01) ==
LOC: BURERS 15:40
DX: I89.0 Lymphedema, not elsewhere classified (principal); E11.9 Type 2 diabetes mellitus without complications; I10 Essential (primary) hypertension; E66.9 Obesity, unspecified; J44.9 Chronic obstructive pulmonary disease, unspecified; E03.9 Hypothyroidism, unspecified; K21.9 Gastro-esophageal reflux disease without esophagitis; E78.5 Hyperlipidemia, unspecified; Z86.73 Personal history of transient ischemic attack (TIA), and cerebral infarction without residual deficits; Z87.891 Personal history of nicotine dependence
CPT/HCPCS: 36415; 70450; 80053; 81003; 81015; 84484; 85025; 85379; 93005; 94760